=== PATIENT | male | born 1935 | race Caucasian/White ===

== ENCOUNTER 2018-07-26 16:42 | Emergency (ER) | payer OTHER ==
[~2018-07-26] VITALS: Ht 165.1 cm; Wt 61.7 kg
[2018-07-26] MEDS ORDERED: VASOTEC2.5 MG (16:59)
[2018-07-26] MEDS ORDERED: TENORMIN25 MG (17:00)
[2018-07-26] MEDS ORDERED: COUMADIN1 MG (17:05)
[2018-07-26] MEDS ORDERED: PROSCAR5 MG (17:05)
[2018-07-26] MEDS ORDERED: COUMADIN2.5 MG (17:10)
[2018-07-26] MEDS ORDERED: ASPIR 8181 MG (17:11)
[2018-07-26] MEDS ORDERED: PROPRANOLOL HCL10 MG (17:11)
[2018-07-26] MEDS ORDERED: KRISTALOSE20 GM PO (19:50)
[2018-07-26] MEDS ORDERED: ANUSOL-HC25 MG RECTAL (19:50)
== END 2018-07-26 20:14 | disposition home or self-care (01) ==
LOC: ER 16:42
DX: K64.8 Other hemorrhoids (principal)